=== PATIENT | male | born 1980 | race Hispanic/Latino ===

== ENCOUNTER 2020-07-17 11:32 | Emergency (ER) | payer SELFPAY ==
[2020-07-17 12:09] VITALS: BP 130/76
[2020-07-17] MEDS ORDERED: IBUPROFEN 600 MG TAB PO ONE (12:16)
--- NOTE | 2020-07-17 12:21 | Emergency Department Report ---
ED Lower Extremity HPI - General Chief Complaint: Extremity Injury, Lower Stated Complaint: LT LEG PAIN Source: patient, operations associate Mode of arrival: Wheelchair Limitations: Language Barrier - History of Present Illness Initial Comments: 39-year-old male presents to the emergency room complaining of left foot pain that started after a piece of steel fell on his foot at work. Patient denies any other past medical history. Patient reports this was an accident. Pain is worse with movement and walking. MD Complaint: foot injury -: This afternoon Injury: Foot: Left (Metal object fell on foot while at work) Type of Injury: blunt Place: work Severity: severe Severity scale (0 -10): 9 Worsens With: weight bearing, movement, palpation Context: direct blow Associated Symptoms: swelling, unable to bear weight Treatments Prior to Arrival: cold therapy - Related Data Previous Rx's Medication Instructions Recorded Last Taken Type HYDROcodone/APAP 7.5-325 [[place] 1 each PO Q6HR PRN #15 tablet 07/17/20 Unknown Rx 7.5/325] Ibuprofen [Motrin 600 MG tab] 600 mg PO Q8H PRN #30 tablet 07/17/20 Unknown Rx Allergies Allergy/AdvReac Type Severity Reaction Status Date / Time No Known Allergies Allergy Unverified 07/17/20 12:06 ED Review of Systems ROS: Stated complaint: LT LEG PAIN Other details as noted in HPI ED Past Medical Hx - Past Medical History Previous Medical History?: No - Surgical History Past Surgical History?: No - Social History Smoking Status: Never Smoker Substance Use Type: None - Medications Home Medications: Home Medications Medication Instructions Recorded Confirmed Last Taken Type HYDROcodone/APAP 7.5-325 [[place] 1 each PO Q6HR PRN #15 tablet 07/17/20 Unknown Rx 7.5/325] Ibuprofen [Motrin 600 MG tab] 600 mg PO Q8H PRN #30 tablet 07/17/20 Unknown Rx ED Physical Exam - General Limitations: Language Barrier General appearance: alert, in no apparent distress - Head Head exam: Present: atraumatic, normocephalic - Eye Eye exam: Present: normal appearance - ENT ENT exam: Present: mucous membranes moist - Neck Neck exam: Present: normal inspection, full ROM - Expanded Lower Extremity Exam Left Hip exam: Present: normal inspection Upper Leg exam: Present: normal inspection Knee exam: Present: normal inspection Lower Leg exam: Present: normal inspection Foot/Toe exam: Present: tenderness, swelling, ecchymosis, erythema Neuro vascular tendon exam: Present: no vascular compromise Gait: Positive: unable to bear weight - Neurological Exam Neurological exam: Present: alert, oriented X3 - Psychiatric Psychiatric exam: Present: normal affect, normal mood - Skin Skin exam: Present: warm, dry, intact, normal color. Absent: rash ED Course Vital Signs 07/17/20 12:06 Temperature 98.1 F Pulse Rate 88 Respiratory 20 Rate Blood Pressure 130/76 O2 Sat by Pulse 98 Oximetry ED Lower Extremity MDM - Radiology Data Radiology results: report reviewed Patient: CARLA HAMPTON MR#: [id number] : 1980 Acct:[id number] Age/Sex: 39 / M ADM Date: 07/17/20 Loc: ED Attending Dr: Ordering Physician: DONNA ZULUAGA Date of Service: 07/17/20 Procedure(s): XR foot 3+V LT Accession Number(s): [id number] cc: DONNA ZULUAGA Fluoro Time In Minutes: XR foot 3+V LT INDICATION / CLINICAL INFORMATION: Left foot pain injury. COMPARISON: None available. FINDINGS/IMPRESSION: Moderately displaced complete transverse fracture through the first left proximal appendix. Alignment is normal. No other fracture identified. Suspect second, third, fourth acroosteolysis, correlate clinically. Signer Name: Lyle Hansen MD Signed: 07/17/2020 12:57 PM Workstation Name: [id number] Transcribed By: CS Dictated By: Lyle Hansen MD Electronically Authenticated By: Lyle Hansen MD Signed Date/Time: 07/17/20 1257 DD/ 1254 TD/TT: - Medical Decision Making 39-year-old male presents to the emergency room complaining of left foot pain that started after a piece of steel fell on his foot at work. Patient denies any other past medical history. Patient reports this was an accident. Pain is worse with movement and walking. X-ray ice pack ibuprofen for pain management X-ray of left foot shows displaced transverse fracture of the great toe. Patient be placed in a post-op and referral to orthopedic. Pain medication. Critical care attestation.: If time is entered above; I have spent that time in minutes in the direct care of this critically ill patient, excluding procedure time. ED Disposition Clinical Impression: Fracture of left great toe Qualifiers: Encounter type: initial encounter Fracture type: closed Phalanx: unspecified phalanx Fracture alignment: displaced Qualified Code(s): S92.402A - Displaced unspecified fracture of left great toe, initial encounter for closed fracture Disposition: TO HOME OR SELFCARE Is pt being admited?: No Does the pt Need Aspirin: No Condition: Stable Instructions: Toe Fracture, [id number] Additional Instructions: X-ray shows that you have fractured your left big toe. You will need to follow- up with an dermatology specialist. You need to be wear the postop shoe that we had given you when you ambulate. Take your pain medication only as needed. Do not operate heavy machinery while taking pain medication. La radiografa muestra que te has fracturado el dedo jose daniel del pie mary anne. Tendr que hacer un seguimiento con un especialista ortopdico. Tienes que usar el zapato postop que te habamos dado cuando te ambuilas. Jaki tu analgsico solo segn sea necesario. No utilice maquinaria pesada mientras tome analgsicos. Prescriptions: Ibuprofen [Motrin 600 MG tab] 600 mg PO Q8H PRN #30 tablet PRN Reason: Pain HYDROcodone/APAP 7.5-325 [[place] 7.5/325] 1 each PO Q6HR PRN #15 tablet PRN Reason: Pain Referrals: RADHA ANGULO MD [Staff Physician] - 3-5 Days [facility] [Provider Group] - 3-5 Days Forms: Work/School Release Form(ED)
--- NOTE | 2020-07-17 13:01 | XRay Report ---
XR foot 3+V LT INDICATION / CLINICAL INFORMATION: Left foot pain injury. COMPARISON: None available. FINDINGS/IMPRESSION: Moderately displaced complete transverse fracture through the first left proximal appendix. Alignment is normal. No other fracture identified. Suspect second, third, fourth acroosteolysis, correlate cli nically. Signer Name: Lyle Hansen MD Signed: 07/17/2020 12:57 PM Workstation Name: [id number]
== END 2020-07-17 14:36 | disposition home or self-care (01) ==
LOC: ED 11:32
DX: S92.402A Displaced unspecified fracture of left great toe, initial encounter for closed fracture (principal); Z79.899 Other long term (current) drug therapy; W18.30XA Fall on same level, unspecified, initial encounter; Y93.89 Activity, other specified; Y92.89 Other specified places as the place of occurrence of the external cause; Y99.8 Other external cause status
CPT/HCPCS: 99283